=== PATIENT | male | born 1990 | race Caucasian/White ===

== ENCOUNTER 2023-01-18 11:19 | Emergency (ER) | payer SELFPAY ==
[~2023-01-18] VITALS: Ht 170.2 cm; Wt 74.0 kg
[2023-01-18 12:15] LABS: BASOPHILS % 0.5 % (0.0-2.0); EOSINOPHILS % 3.4 % (0.0-5.0); HEMATOCRIT. 37.3 % (42.0-52.0); HEMOGLOBIN. 12.6 g/dL (14.0-18.0); LYMPHOCYTES % 18.2 % (20.0-50.0); MEAN CORPUSCULAR HEMOGLOBIN 30.1 pg (28.0-32.0); MEAN CORPUSCULAR VOLUME 88.7 fL (80.0-94.0); MEAN PLATELET VOLUME 8.1 fl (7.4-10.4); MONOCYTES % 6.7 % (2.0-8.0); NEUTROPHILS % 71.2 % (40.0-76.0); PLATELET 280 x1000/uL (130-400); RED CELL DISTRIBUTION WIDTH 12.4 % (11.6-14.6)
[2023-01-18 12:25] LABS: CHLORIDE 108 mEq/L (98-107)
[2023-01-18 12:39] LABS: CLARITY URINE CLEAR (CLEAR); COLOR URINE YELLOW (YELLOW); KETONES URINE NEGATIVE (NEGATIVE); LEUKOCYTE ESTERASE URINE NEGATIVE (NEGATIVE); NITRITE URINE NEGATIVE (NEGATIVE); OCCULT BLOOD URINE NEGATIVE (NEGATIVE); PH URINE 7.5 (4.5-8.0); PROTEIN URINE NEGATIVE (NEGATIVE); SPECIFIC GRAVITY URINE 1.005 (1.005-1.030); UROBILINOGEN URINE 0.2 E.U./dL (0.2-1.0)
[2023-01-18] MEDS ORDERED: ONDANSETRON HCL 4MG/2ML INJ IV STA (12:57)
[2023-01-18] MEDS ORDERED: MORPHINE SULFATE 4 MG/ML CPJ (NOT FOR IM USE) IV STA (12:57)
[2023-01-18] MEDS ORDERED: SODIUM CHLORIDE 0.9% 1,000 ML IV ONE (13:30)
[2023-01-18] MEDS ORDERED: MORPHINE SULFATE 4 MG/ML CPJ (NOT FOR IM USE) IV NR (14:34)
[2023-01-18] MEDS ORDERED: ONDANSETRON HCL 4MG/2ML INJ IV NR (14:35)
[2023-01-18] MEDS ORDERED: METRONIDAZOLE 500MG TABLET PO ONE (15:15)
[2023-01-18] MEDS ORDERED: LEVOFLOXACIN 500MG TABLET PO ONE (15:15)
[2023-01-18] MEDS ORDERED: METR-167 MT (17:15)
[2023-01-18] MEDS ORDERED: ONDA4TAB11 PO (17:15)
[2023-01-18] MEDS ORDERED: OMEP20CA14 MT (17:15)
[2023-01-18] MEDS ORDERED: HYDR-4001 MT (17:15)
[2023-01-18] MEDS ORDERED: CIPR-263 MT (17:15)
[2023-01-18 17:33] VITALS: BP 117/71
== END 2023-01-18 17:36 | disposition home or self-care (01) ==
LOC: ER 14:54
DX: K81.9 Cholecystitis, unspecified (principal); J45.909 Unspecified asthma, uncomplicated; Z79.899 Other long term (current) drug therapy
CPT/HCPCS: 36415; 76705; 80053; 81003; 83690; 85025; 93005; 96374; 96375; 99285; J2270; J2405; J7030; Z7610